=== PATIENT | female | born 2000 | race African-American/Black ===

== ENCOUNTER 2018-03-10 07:34 | Outpatient (CLI) | payer OTHER ==
--- NOTE | 2018-03-10 08:43 | ULT ---
RIGHT UPPER QUADRANT ULTRASOUND: Comparison: None. History: Abdominal pain, nausea. Technique: Multiplanar grayscale and color doppler images were obtained in a right upper quadrant abd ominal ultrasound. FINDINGS: The liver demonstrates increased echogenicity without focal lesions or intrahepatic ductal dilatation . There is sludge within the gallbladder. There is no gallbladder wall thickening or pericholecystic fluid. The common bile duct is normal measuring 5 mm. The visualized portions of the pancreas are unremarkable. The right kidney is normal in echogenicity without hydronephrosis or calculus measuring 9.7 cm in length. IMPRESSION: 1. Fatty liver. 2. Gallbladder sludge. POS: ROS
--- NOTE | 2018-03-10 10:23 | RAD ---
UPPER GI: Date: 03/10/18 HISTORY: Nausea. EXPOSURE: 30.381 Gy*cm^2. 3.2 minutes of fluoroscopic time. FINDINGS: A double contrast upper GI was performed with air and barium. Esophageal motility is normal. No esoph ageal abnormality is seen. No intrinsic or extrinsic esophageal abnormality is seen. There is no evid ence of hiatal hernia. The stomach is normal in size and appearance without focal mucosal abnormality. Contrast passed into the duodenum without difficult. No duodenal abnormality is seen. A trace amount of gastroesophageal reflux was seen during the examination into the distal thoracic es ophagus. IMPRESSION: Mild gastroesophageal reflux disease. POS: [facility]
== END 2018-03-10 07:35 | disposition home or self-care (01) ==
LOC: ULT 07:34
PROVIDERS: ATTEND Family Medicine
DX: R11.0 Nausea (principal); K21.9 Gastro-esophageal reflux disease without esophagitis; K76.0 Fatty (change of) liver, not elsewhere classified; K82.8 Other specified diseases of gallbladder
CPT/HCPCS: 74247; 76705

== ENCOUNTER 2021-10-05 17:43 | Emergency (ER) | payer BC ==
[2021-10-05] MEDS ORDERED: Ketorolac Tromethamine 30 MG/ML VIAL ONE (18:36)
[2021-10-05] MEDS ORDERED: Cyclobenzaprine 10 MG TAB ONE (18:36)
== END 2021-10-05 19:55 | disposition home or self-care (01) ==
LOC: ERS 17:43
DX: S40.012A Contusion of left shoulder, initial encounter (principal); S70.02XA Contusion of left hip, initial encounter; V43.52XA Car driver injured in collision with other type car in traffic accident, initial encounter
CPT/HCPCS: 96372; J1885

== ENCOUNTER 2021-10-08 16:18 | Outpatient (CLI) | payer BC | END 2021-10-08 16:19 | disposition home or self-care (01) | LOC: SCSRAD 16:18 | PROVIDERS: ATTEND Family Medicine | DX: M54.2 Cervicalgia (principal); M54.50 Low back pain, unspecified | CPT/HCPCS: 72040; 72100 ==